=== PATIENT | female | born 1965 | race Caucasian/White ===

== ENCOUNTER 2021-10-31 10:37 | Emergency (ER) | payer BC ==
[~2021-10-31] VITALS: Ht 160 cm; Wt 72.6 kg
[2021-10-31 10:37] VITALS: BP_SYST 140
--- NOTE | 2021-10-31 10:37 | NUR ---
BROUGHT IN BY [facility] AND [facility]ACED IN BED #6, TRIAGED. REPORT GIVEN TO STERLING
--- NOTE | 2021-10-31 10:45 | NUR ---
Pt to bed #6 coming from work at [employer]. Pt is A&Ox4. SKin intact. pt c/o having syncopal episode at work. States she fell at work because she fainted and LOC. Pt hit her right side of head on the floor and twisted her left ankle. There is a bump present on the top of right head and pt has swelling on left ankle. Pt rates head pain 7/10 non-radiating and left ankle pain 6/10 non-radiating. Pt states she also has blurred vision but no more nausea and no vomiting. No chest pain and no sob. Connected pt to cradiac monitor and VSS. Pt has NKA. Has hx of HTN. Bed in lowest position.
--- NOTE | 2021-10-31 10:47 | NUR ---
ER at bedside examining patient.
--- NOTE | 2021-10-31 10:50 | NUR ---
EKG performed at by myself Mervat DAMON. Physician given copy of EKG for review.
[2021-10-31] MEDS ORDERED: IBUPROFEN 600 MG TABLET PO ONE (11:00)
[2021-10-31] MEDS ORDERED: NACL 0.9% 1,000 ML IV ONE (11:00)
[2021-10-31] MEDS ORDERED: ACETAMINOPHEN 500 MG TABLET PO ONE (11:00)
[2021-10-31 11:03] LABS: BASOPHILS % (AUTO) 0.4 % (0.0-2.0); HEMATOCRIT 36.4 % (36-48); HEMOGLOBIN 12.4 g/dL (12.0-16.0); LYMPHOCYTES # (AUTO) 1.7 K/uL (1.0-5.5); LYMPHOCYTES % (AUTO) 37.3 % (20.5-51.5); MEAN CORPUSCULAR HEMOGLOBIN 30 pg (27-31); MEAN CORPUSCULAR HGB CONC 34 % (32-36); MEAN CORPUSCULAR VOLUME 87 fL (79.0-98.0); MONOCYTES # (AUTO) 0.6 K/uL (0.0-1.0); MONOCYTES % (AUTO) 13.9 % (1.7-9.3); NEUTROPHILS # (AUTO) 2.2 K/uL (1.8-7.7); NEUTROPHILS % (AUTO) 48.4 % (40.0-70.0); PLATELET COUNT (AUTO) 202 K/uL (130-430); RED BLOOD CELL COUNT(AUTO) 4.19 MIL/uL (4.2-6.2); RED CELL DISTRIBUTION WIDTH 13.1 % (9.0-15.0); WHITE BLOOD COUNT (AUTO) 4.6 K/uL (4.8-10.8)
--- NOTE | 2021-10-31 11:12 | NUR ---
# 20 gauge angiocath placed to left forearm. Use of asceptic technique. Opsite placed over site. Blood return noted. Blood for lab drawn from site. Flushed with 10 cc of normal saline. No evidence of infiltration noted. Patient tolerated well.
--- NOTE | 2021-10-31 11:17 | NUR ---
Patient transported to radiology via gurney, accompanied by technology sales consultant.
--- NOTE | 2021-10-31 11:33 | NUR ---
Returned from radiology, back to [facility].
--- NOTE | 2021-10-31 11:46 | NUR ---
X-Ray of ankle and foot being done at bedside.
[2021-10-31 11:56] LABS: CALCIUM 7.8 mg/dL (8.4-11.0); CREATININE 0.62 mg/dL (0.55-1.30); POTASSIUM 3.1 mmol/L (3.5-5.1)
[2021-10-31 12:01] LABS: ALBUMIN 3.6 g/dL (3.4-4.8); TOTAL BILIRUBIN 0.2 mg/dL (0.0-1.0)
[2021-10-31] MEDS ORDERED: IBUP-1969 PO (12:22)
[2021-10-31] MEDS ORDERED: ACET-2634 PO (12:22)
[2021-10-31 12:44] VITALS: BP_SYST 146
--- NOTE | 2021-10-31 12:45 | NUR ---
Patient given written and verbal discharge instructions and verbalizes understanding. ER MD discussed with patient the results and treatment provided. Patient in stable condition. ID arm band removed. Rx of [Ibuprofen, Tylenol ] given. Patient educated on pain management and to follow up with PMD. Pain Scale [ 0/10]. Opportunity for questions provided and answered. Medication side effect fact sheet provided.
== END 2021-10-31 12:44 | disposition home or self-care (01) ==
LOC: SED 10:37
DX: S93.402A Sprain of unspecified ligament of left ankle, initial encounter (principal); S09.90XA Unspecified injury of head, initial encounter; E87.6 Hypokalemia; E87.1 Hypo-osmolality and hyponatremia; R55 Syncope and collapse; Z79.899 Other long term (current) drug therapy; W18.39XA Other fall on same level, initial encounter; Y93.89 Activity, other specified; Y92.89 Other specified places as the place of occurrence of the external cause; Y99.8 Other external cause status
CPT/HCPCS: 36415; 70450; 73610; 73620; 76376; 80053; 85025; 93005; 96360; 99285; J7030